=== PATIENT | female | born 1945 | race Caucasian/White ===

== ENCOUNTER 2018-08-31 03:07 | Emergency (ER) | payer MEDICARE, BC ==
[2018-08-31] MEDS ORDERED: FENTANYL CITRATE INJ/PF 100 MCG/2 ML AMPUL ONE (03:26)
[2018-08-31 03:41] LABS: ARTERIAL BLOOD BASE EXCESS -10.5 mmol/L; ARTERIAL BLOOD FIO2 15L; ARTERIAL BLOOD H2CO3 1.81 mmol/L (1.05-1.35); ARTERIAL BLOOD HCO3 19.2 mmol/L (20-24); ARTERIAL BLOOD O2 SATURATION 98.7 % (94-98); ARTERIAL BLOOD PCO2 60.1 mmHg (35-45); ARTERIAL BLOOD PO2 177.6 mmHg (80-100); ARTERIAL BLOOD TOTAL CO2 21.1 mmol/L (21-25)
[2018-08-31 03:43] LABS: ABSOLUTE EOSINOPHILS # (AUTO) 0.1 10^3/uL (0.0-0.6); ABSOLUTE LYMPHOCYTES (AUTO) 1.9 10^3/uL (0.5-4.7); ABSOLUTE MONOCYTES (AUTO) 0.2 10^3/uL (0.1-1.4); BASOPHILS % (AUTO) 0.3 % (0-2); EOSINOPHILS % (AUTO) 0.5 % (0-6); HEMATOCRIT 39.3 % (36.0-47.0); HEMOGLOBIN 12.6 g/dL (12.0-15.5); LYMPHOCYTES % (AUTO) 13.3 % (13-45); MEAN CORPUSCULAR VOLUME 97 fl (80-97); MONOCYTES % (AUTO) 1.1 % (3-13); PLATELET COUNT 306 10^3/uL (150-450); RED BLOOD COUNT 4.06 10^6/uL (3.72-5.28); RED CELL DISTRIBUTION WIDTH 15.1 % (11.5-14.0); SEGMENTED NEUTROPHILS % (AUTO) 84.8 % (42-78); TOTAL CELLS COUNTED % (AUTO) 100 %; WHITE BLOOD COUNT 14.1 10^3/uL (4.0-10.5)
[2018-08-31 03:43] LABS: ARTERIAL BLOOD PH 7.12 (7.35-7.45)
[2018-08-31] MEDS ORDERED: ENOXAPARIN SODIUM INJ 100 MG/1 ML DISP.SYRIN SUBCUT ONE (03:51)
--- NOTE | 2018-08-31 03:54 | ER Document Report ---
ED General - General Chief Complaint: Respiratory Distress Stated Complaint: RESPIRATORY DISTRESS Time Seen by Provider: 08/31/18 03:34 TRAVEL OUTSIDE OF THE [place] IN LAST 30 DAYS: No - HPI Notes: Patient is a 73-year-old female that presents to the emergency department for chief complaint of respiratory distress. Patient called EMS when she became acutely short of breath tonight. She states she is due to have a heart catheterization at [facility] at 9 AM this morning. Patient is currently denying any chest pain. She denies history of COPD and congestive heart failure. Patient states she is feeling very short of breath, it is worse when she is lying flat. She has not had any aerosol treatm ents at home. She denies taking any aspirin today. Patient denies associated diaphoresis nausea or vomiting. EMS states her O2 was 70% on room air when they arrived. Past Medical History: CAD, hypertension Past Surgical History: Unknown Social History: No tobacco, alcohol or drug use Family History: Reviewed and noncontributory for presenting illness Allergies: Reviewed, see documented allergy list. REVIEW OF SYSTEMS: CONSTITUTIONAL : No fever No chills No diaphoresis No recent illness Fatigue EENT: No vision changes No congestion No sore throat CARDIOVASCULAR: No chest pain No palpitations RESPIRATORY: shortness of breath No cough No difficulty breathing GASTROINTESTINAL: No abdominal pain No nausea No vomiting No diarrhea GENITOURINARY: No dysuria No hematuria No difficulty urinating MUSCULOSKELETAL: No back pain No leg pain No arm pain SKIN: No rashes No lesions LYMPHATIC: No swollen, enlarged glands. NEUROLOGICAL: No lightheadedness No headache No weakness No paresthesias PSYCHIATRIC: No anxiety No depression PHYSICAL EXAMINATION: Vital signs reviewed, nursing noted reviewed. GENERAL: Somnolent, obese and in moderate acute distress. HEAD: Atraumatic, normocephalic. EYES: Eyes appear normal, extraocular movements intact, sclera anicteric, conjunctiva are normal. ENT: nares patent, oropharynx clear without exudates. Dry mucous membranes. NECK: Normal range of motion, supple without lymphadenopathy LUNGS: Breath sounds significantly diminished bilaterally with accessory muscle use and prolonged expiratory phase HEART: Regular rate and rhythm without murmurs ABDOMEN: Protuberant, soft, nontender, normoactive bowel sounds. No rebound, guarding, or rigidity. No masses appreciated. EXTREMITIES: Nontender, good range of motion, no pitting or edema. NEUROLOGICAL: Somnolent, motor and sensory grossly intact, moving all extremities spontaneously, GCS 14 PSYCH: Normal mood, normal affect. SKIN: Warm, Dry, normal turgor, no rashes or lesions noted on exposed skin - Related Data Allergies/Adverse Reactions: codeine [Codeine] Allergy (Mild, Verified 04/03/15 03:09) diphenhydramine HCl [From Benadryl] Allergy (Mild, Verified 04/03/15 03:08) Past Medical History - Social History Smoking Status: Never Smoker Family History: Reviewed & Not Pertinent Endocrine Medical History: Reports: Hx Diabetes Mellitus Type 2 - Immunizations Hx Diphtheria, Pertussis, Tetanus Vaccination: Yes Physical Exam - Vital signs Vitals: Resp Pulse Ox 18 100 08/31/18 03:40 08/31/18 03:40 Course - Re-evaluation Re-evalutation: 08/31/18 03:50 Vitals reviewed. Nursing notes reviewed. Patient presented to the ER on BiPAP by EMS with an oxygen of 80%. She had dusky skin hand was not mentating well. The plan to intubate patient for airway protection was initiated. While it set up was being performed patient was started on bag valve ventilation 100% O2. She was able to get oxygenated up to 100% on BVM. With improvement of her oxygenation patient's mentation quickly improved as well. She began speaking and providing much more history. Patient did receive medication for sedation however her mentation continued to improve despite receiving a large dose of propofol and etomidate. Patient never became sedate. The decision was made since her mentation was rapidly improving to hold off on intubation and do a trial of BiPAP with aerosols. Patient's EKG was obtained and showed ST elevation in V3 through V4 with idioventricular conduction delay. I have no comparison. I discussed patient's care with Dr. Bradford at [facility] where she is scheduled for her heart catheterization. She was unable to provide comparison EKG to suggest that patient's conduction delay and ST elevation is chronic in nature. Because of her known CAD, acute respiratory distress and ST elevation patient will be treated for STEMI. She did receive lytics, Lovenox, and aspirin. Patient will be transferred for heart catheterization. 08/31/18 04:30 Patient reevaluated and has continued to improve. She is awake and mentating, speaking in full sentences with a GCS of 15. Laboratory 08/31/18 08/31/18 08/31/18 03:16 03:16 03:16 WBC 14.1 H RBC 4.06 Hgb 12.6 Hct 39.3 MCV 97 MCH 31.0 MCHC 32.0 RDW 15.1 H Plt Count 306 Seg Neutrophils % 84.8 H Lymphocytes % 13.3 Monocytes % 1.1 L Eosinophils % 0.5 Basophils % 0.3 Absolute Neutrophils 12.0 H Absolute Lymphocytes 1.9 Absolute Monocytes 0.2 Absolute Eosinophils 0.1 Absolute Basophils 0.0 Carbonic Acid HCO3/H2CO3 Ratio ABG pH ABG pCO2 ABG pO2 ABG HCO3 ABG Total CO2 ABG O2 Saturation ABG Base Excess FiO2 Sodium 137.9 Potassium 5.8 H Chloride 112 H Carbon Dioxide 16 L Anion Gap 10 BUN 30 H Creatinine 0.95 Est GFR ( Amer) > 60 Est GFR (Non-Af Amer) 58 L Glucose 525 H* Calcium 7.6 L Total Bilirubin 0.6 Direct Bilirubin 0.4 Neonat Total Bilirubin Not Reportable Neonat Direct Bilirubin Not Reportable Neonat Indirect Bili Not Reportable AST 70 H ALT 61 H Alkaline Phosphatase 85 Creatine Kinase 69 CK-MB (CK-2) 1.35 Troponin I 0.033 NT-Pro-B Natriuret Pep 2340 H Total Protein 5.6 L Albumin 3.4 L Urine Color Urine Appearance Urine pH Ur Specific [place] Urine Protein Urine Glucose (UA) Urine Ketones Urine Blood Urine Nitrite Urine Bilirubin Urine Urobilinogen Ur Leukocyte Esterase Urine WBC (Auto) Urine RBC (Auto) U Hyaline Cast (Auto) Urine Bacteria (Auto) Squamous Epi Cells Auto Urine Mucus (Auto) Urine Ascorbic Acid 08/31/18 08/31/18 03:24 03:50 WBC RBC Hgb Hct MCV MCH MCHC RDW Plt Count Seg Neutrophils % Lymphocytes % Monocytes % Eosinophils % Basophils % Absolute Neutrophils Absolute Lymphocytes Absolute Monocytes Absolute Eosinophils Absolute Basophils Carbonic Acid 1.81 H HCO3/H2CO3 Ratio 10:1 ABG pH 7.12 L* ABG pCO2 60.1 H ABG pO2 177.6 H ABG HCO3 19.2 L ABG Total CO2 21.1 ABG O2 Saturation 98.7 H ABG Base Excess -10.5 FiO2 15L Sodium Potassium Chloride Carbon Dioxide Anion Gap BUN Creatinine Est GFR ( Amer) Est GFR (Non-Af Amer) Glucose Calcium Total Bilirubin Direct Bilirubin Neonat Total Bilirubin Neonat Direct Bilirubin Neonat Indirect Bili AST ALT Alkaline Phosphatase Creatine Kinase CK-MB (CK-2) Troponin I NT-Pro-B Natriuret Pep Total Protein Albumin Urine Color YELLOW Urine Appearance SLIGHTLY-CLOUDY Urine pH 5.0 Ur Specific [place] 1.016 Urine Protein 100 H Urine Glucose (UA) >=500 H Urine Ketones NEGATIVE Urine Blood NEGATIVE Urine Nitrite NEGATIVE Urine Bilirubin NEGATIVE Urine Urobilinogen NEGATIVE Ur Leukocyte Esterase TRACE H Urine WBC (Auto) 16 Urine RBC (Auto) 1 U Hyaline Cast (Auto) 4 Urine Bacteria (Auto) TRACE Squamous Epi Cells Auto <1 Urine Mucus (Auto) RARE Urine Ascorbic Acid 20 H Chest X-Ray 08/31/18 03:33 IMPRESSION: Bilateral opacities favored to represent pneumonia although could represent edema. Patient's work of breathing has significantly decreased. She did receive Nitropaste for new onset acute heart failure likely secondary to her STEMI. Patient's blood work populated as she was leaving the department with the flight crew. I did notify them that she has a mild leukocytosis and x-ray shows possible pneumonia however she is afebrile and I suspect edema more likely than pneumonia. Patient also meeting criteria for DKA with metabolic acidosis and hyperglycemia. She is stable and improved for transfer - Vital Signs Vital signs: Temp Pulse Resp BP Pulse Ox 18 100 08/31/18 03:40 08/31/18 03:40 - Laboratory Result Diagrams: 08/31/18 03:16 08/31/18 03:16 Laboratory results interpreted by me: 08/31/18 08/31/18 08/31/18 03:16 03:16 03:16 WBC 14.1 H RDW 15.1 H Seg Neutrophils % 84.8 H Monocytes % 1.1 L Absolute Neutrophils 12.0 H Carbonic Acid ABG pH ABG pCO2 ABG pO2 ABG HCO3 ABG O2 Saturation Potassium 5.8 H Chloride 112 H Carbon Dioxide 16 L BUN 30 H Est GFR (Non-Af Amer) 58 L Glucose 525 H* Calcium 7.6 L AST 70 H ALT 61 H NT-Pro-B Natriuret Pep 2340 H Total Protein 5.6 L Albumin 3.4 L Urine Protein Urine Glucose (UA) Ur Leukocyte Esterase Urine Ascorbic Acid 08/31/18 08/31/18 03:24 03:50 WBC RDW Seg Neutrophils % Monocytes % Absolute Neutrophils Carbonic Acid 1.81 H ABG pH 7.12 L* ABG pCO2 60.1 H ABG pO2 177.6 H ABG HCO3 19.2 L ABG O2 Saturation 98.7 H Potassium Chloride Carbon Dioxide BUN Est GFR (Non-Af Amer) Glucose Calcium AST ALT NT-Pro-B Natriuret Pep Total Protein Albumin Urine Protein 100 H Urine Glucose (UA) >=500 H Ur Leukocyte Esterase TRACE H Urine Ascorbic Acid 20 H - Diagnostic Test Radiology reviewed: Image reviewed - EKG Interpretation by Me Additional EKG results interpreted by me: 08/31/18 03:54 Interpreted by myself 0312: Normal sinus rhythm, rate 91, normal axis, ST elevation V2 through V4 with no reciprocal ST depression, idioventricular conduction delay Critical Care Note - Critical Care Note Total time excluding time spent on procedures (mins): 40 Comments: Critical care time 40 exclusive from separate billable procedures for a patient requiring complex medical decision making, and high potential for clinical deterioration. Time spent obtaining history from patient or surrogate, discussions with consultants, development of treatment plan with patient or surrogate, evaluation of patient's response to treatment, examination of patient, ordering and performing treatments and interventions, ordering and review of laboratory studies, re-evaluation of patient's condition, ordering and review of radiographic studies and review of old charts Discharge - Discharge Clinical Impression: Hypoxia, New onset of congestive heart failure STEMI (ST elevation myocardial infarction) Qualifiers: Involved coronary artery: other coronary artery Qualified Code(s): I21.29 - ST elevation (STEMI) myocardial infarction involving other sites Acute respiratory failure Qualifiers: Respiratory failure complication: hypoxia Qualified Code(s): J96.01 - Acute respiratory failure with hypoxia DKA (diabetic ketoacidoses) Qualifiers: Diabetes mellitus type: type 1 Diabetes mellitus complication detail: without coma Qualified Code(s): E10.10 - Type 1 diabetes mellitus with ketoacidosis without coma Condition: Stable Disposition: [facility]
[2018-08-31] MEDS ORDERED: NITROGLYCERIN 2% OINTMENT 1 GM PACKET TP ONE (03:56)
[2018-08-31 04:02] LABS: ALANINE AMINOTRANSFERASE 61 U/L (9-52); ALBUMIN 3.4 g/dL (3.5-5.0); ALKALINE PHOSPHATASE 85 U/L (38-126); ANION GAP 10 (5-19); ASPARTATE AMINO TRANSFERASE 70 U/L (14-36); BILIRUBIN,DIRECT 0.4 mg/dL (0.0-0.4); BILIRUBIN,TOTAL 0.6 mg/dL (0.2-1.3); BLOOD UREA NITROGEN 30 mg/dL (7-20); CALCIUM 7.6 mg/dL (8.4-10.2); CARBON DIOXIDE 16 mmol/L (22-30); CHLORIDE 112 mmol/L (98-107); CREATINE KINASE 69 U/L (30-135); POTASSIUM 5.8 mmol/L (3.6-5.0); SODIUM 137.9 mmol/L (137-145); TOTAL PROTEIN 5.6 g/dL (6.3-8.2)
[2018-08-31 04:13] LABS: CREATINE KINASE MB 1.35 ng/mL (<4.55); TROPONIN I 0.033 ng/mL
[2018-08-31 04:16] LABS: GLUCOSE 525 mg/dL (75-110)
--- NOTE | 2018-08-31 04:20 | RADIOLOGY REPORT (SQ) ---
Chest single view on 08/31/2018 at 3:47 AM CLINICAL INDICATION: Difficulty breathing COMPARISON: None FINDINGS: There are fairly extensive bilateral opacities consistent with edema and/or pneumonia. Heart is upper limits normal for size. Hilar and mediastinal contours are within normal limits. IMPRESSION: Bilateral opacities favored to represent pneumonia although could represent edema.
[2018-08-31 04:23] LABS: APPEARANCE,URINE SLIGHTLY-CLOUDY; BILIRUBIN,URINE NEGATIVE (NEGATIVE); COLOR,URINE YELLOW; GLUCOSE, URINE >=500 mg/dL (NEGATIVE); KETONES,URINE NEGATIVE (NEGATIVE); LEUKOCYTE ESTERASE,URINE TRACE (NEGATIVE); NITRITE,URINE NEGATIVE (NEGATIVE); PROTEIN,URINE 100 mg/dL (NEGATIVE); URINE SPECIFIC GRAVITY 1.016; UROBILINOGEN,URINE NEGATIVE mg/dL (<2.0)
[2018-08-31] MEDS ORDERED: PROPOFOL 1,000 MG/100 ML INFUS..BTL IV ONE (04:45)
[2018-08-31] MEDS ORDERED: IPRATROPIUM/ALBUTEROL 0.5-2.5 MG/3 ML AMPUL NEB ONE (04:45)
[2018-08-31 05:56] VITALS: BP 100/48
--- NOTE | 2018-08-31 06:45 | EKG REPORT ---
SEVERITY:- ABNORMAL ECG - SINUS RHYTHM LBBB : Confirmed by: Oumar López MD 31-Aug-2018 06:44:02
[2018-08-31] MEDS ORDERED: ROCURONIUM BROMIDE INJ 50 MG/5 ML VIAL IV ONE (09:56)
[2018-08-31] MEDS ORDERED: ETOMIDATE INJ/PF 20 MG/10 ML SDV IV ONE (09:58)
[2018-08-31] MEDS ORDERED: CLOPIDOGREL BISULFATE 300 MG TABLET ONE (10:04)
[2018-08-31] MEDS ORDERED: ASPIRIN 81 MG TABLET, CHEWABLE ONE (10:04)
[2018-08-31] MEDS ORDERED: ENOXAPARIN SODIUM INJ 30 MG/0.3 ML DISP.SYRIN ONE (10:06)
[2018-08-31] MEDS ORDERED: TENECTEPLASE INJ 50 MG KIT IV ONE (10:06)
[2018-09-01] MEDS ORDERED: ASPIRIN 81 MG TABLET, CHEWABLE PO ONE (03:48)
[2018-09-01] MEDS ORDERED: TENECTEPLASE INJ 50 MG KIT IV ONE (03:48)
[2018-09-01] MEDS ORDERED: ENOXAPARIN SODIUM INJ 100 MG/1 ML DISP.SYRIN SUBCUT ONE (03:51)
[2018-09-01] MEDS ORDERED: CLOPIDOGREL BISULFATE 300 MG TABLET PO ONE (03:57)
[2018-09-01] MEDS ORDERED: NITROGLYCERIN 2% OINTMENT 1 GM PACKET TP ONE (03:59)
== END 2018-08-31 04:30 | disposition short-term general hospital (02) ==
LOC: ER 03:07
DX: I21.3 ST elevation (STEMI) myocardial infarction of unspecified site (principal); I11.0 Hypertensive heart disease with heart failure; I50.9 Heart failure, unspecified; E10.10 Type 1 diabetes mellitus with ketoacidosis without coma; I45.9 Conduction disorder, unspecified; J96.01 Acute respiratory failure with hypoxia; I25.10 Atherosclerotic heart disease of native coronary artery without angina pectoris; D72.829 Elevated white blood cell count, unspecified; R40.0 Somnolence; E66.9 Obesity, unspecified; Z88.5 Allergy status to narcotic agent; Z88.8 Allergy status to other drugs, medicaments and biological substances
CPT/HCPCS: 93005; 36600; 94640; 99291; 96372; 51702; 96374; 96375; 36415; 87040; 82553; 82803; 82550; 85025; 80053; 81001; 84484; 83880; 71045; 93010; 94660; J3101; A9270 ×2; J3490 ×2; J1650